=== PATIENT | female | born 1960 | race Caucasian/White ===

== ENCOUNTER → 2016-12-11 | Outpatient (CLI) | payer BC, OTHER | LOC: RAD 11:35 | DX: Z12.31 Encounter for screening mammogram for malignant neoplasm of breast (principal) ==

== ENCOUNTER → 2017-12-15 | Outpatient (CLI) | payer BC, OTHER | LOC: BC 01:13 | DX: Z12.31 Encounter for screening mammogram for malignant neoplasm of breast (principal) ==